=== PATIENT | female | born 1935 | race Caucasian/White ===

== ENCOUNTER 2018-05-20 05:59 | Inpatient (IN) | payer OTHER ==
[~2018-05-20] VITALS: Ht 165.1 cm; Wt 62.9 kg
[~2018-05-20 05:59] MED LIST: FLUT15.88 NAS; HYDR12.53 PO; LOVA10TA PO
[2018-05-20] MEDS ORDERED: SODIUM CHLORIDE 0.9% 1,000 ML IV ONE (06:06)
[2018-05-20 06:24] VITALS: BP 152/75
[2018-05-20] MEDS ORDERED: ONDANSETRON 2MG/ML, 2ML IVPush PRN (06:30)
[2018-05-20] MEDS ORDERED: CHLORHEXIDINE 15 ML BOTTLE MM PRN (06:30)
[2018-05-20] MEDS ORDERED: CHLORHEXIDINE 15 ML UDC MM PRN (06:30)
[2018-05-20 06:38] LABS: BASOPHILS # (AUTO) 0.02 x10^3/uL (0-0.1); BASOPHILS % (AUTO) 1 % (0-1); EOSINOPHILS # (AUTO) 0.13 x10^3/uL (0-0.4); EOSINOPHILS % (AUTO) 3 % (1-7); LYMPHOCYTES % (AUTO) 27 % (22-44); MD NO; MEAN CORPUSCULAR VOLUME 91.3 fL (80-100); MEAN PLATELET VOLUME 8.8 fL (7.4-10.4); MONOCYTES # (AUTO) 0.42 x10^3/uL (0.2-0.8); MONOCYTES % (AUTO) 8 % (2-9); NEUTROPHILS % (AUTO) 62 % (42-75); PLATELET COUNT 211 x10^3/uL (130-400); RED BLOOD COUNT 4.52 x10^6/uL (3.82-5.3); RED CELL DISTRIBUTION WIDTH 13.9 % (9.6-15.2)
[2018-05-20 06:44] LABS: INTERNATIONAL NORMALIZED RATIO 1.04 (0.93-1.1); PROTHROMBIN TIME 10.7 Seconds (9.6-11.5)
[2018-05-20 06:45] LABS: ALANINE AMINOTRANSFERASE 40 U/L (12-78); ALBUMIN 4.2 g/dL (3.4-5.0); ANION GAP 6 mmol/L (5-15); CALCIUM 9.2 mg/dL (8.5-10.1); CHLORIDE 106 mmol/L (98-107); CREATININE 0.79 mg/dL (0.55-1.02)
[2018-05-20 06:49] LABS: ALKALINE PHOSPHATASE 56 U/L (45-117); BILIRUBIN,TOTAL 0.8 mg/dL (0.2-1.0); TOTAL PROTEIN 7.4 g/dL (6.4-8.2)
[2018-05-20] MEDS ORDERED: FENTANYL PF 250 MCG/5ML ONE (07:00)
[2018-05-20] MEDS ORDERED: LIDOCAINE 2%, 50ML ONE (07:09)
[2018-05-20] MEDS ORDERED: PROTAMINE SULFATE 10 MG/ML, 5ML ONE (07:09)
[2018-05-20] MEDS ORDERED: CEFAZOLIN 1,000 MG ONE (07:09)
[2018-05-20] MEDS ORDERED: HEPARIN 1,000 UNITS/ML, 10ML ONE ×2 (07:09→08:27)
[2018-05-20] MEDS ORDERED: ROCURONIUM 10 MG/ML,10ML ONE (07:44)
[2018-05-20] MEDS ORDERED: PROPOFOL 10 MG/ML, 20ML ONE (09:14)
[2018-05-20] MEDS ORDERED: SUCCINYLCHOLINE 20 MG/ML, 10ML ONE (09:14)
[2018-05-20] MEDS ORDERED: ONDANSETRON 2MG/ML, 2ML ONE (09:15)
[2018-05-20] MEDS: hydrALAzine 20 MG/ML, 1ML IVPush PRN ×2 (09:36→11:27)
[2018-05-20] MEDS: LABETALOL 20 MG/4 ML IVPush PRN ×2 (10:08→12:30)
[2018-05-20] MEDS: SODIUM CHLORIDE 0.9% 1,000 ML IV SCH ×2 (11:32→15:35)
[2018-05-20] MEDS: HYDROCHLOROTHIAZIDE 12.5 MG CAPSULE PO SCH (11:32)
[2018-05-20] MEDS ORDERED: LOVASTATIN 10 MG TABLET PO SCH (21:00)
[2018-05-20] MEDS ORDERED: CLOPIDOGREL 300 MG TABLET PO ONE (21:00)
[2018-05-20] MEDS ORDERED: FLUTICASONE NASAL SPRAY 16GM NAS SCH (21:00)
[2018-05-20 22:07] VITALS: BP 107/56
[2018-05-21 02:26] VITALS: BP 107/53
[2018-05-21 06:37] LABS: BASOPHILS # (AUTO) 0.02 x10^3/uL (0-0.1); BASOPHILS % (AUTO) 0 % (0-1); EOSINOPHILS # (AUTO) 0.08 x10^3/uL (0-0.4); EOSINOPHILS % (AUTO) 1 % (1-7); LYMPHOCYTES # (AUTO) 1.26 x10^3/uL (1-3.4); LYMPHOCYTES % (AUTO) 20 % (22-44); MD NO; MEAN CORPUSCULAR HEMOGLOBIN 30.9 pg (27.0-34.8); MEAN CORPUSCULAR HGB CONC 34.2 g/dL (32.4-35.8); MEAN CORPUSCULAR VOLUME 90.3 fL (80-100); MONOCYTES % (AUTO) 11 % (2-9); NEUTROPHILS # (AUTO) 4.35 x10^3/uL (1.8-6.8); NEUTROPHILS % (AUTO) 68 % (42-75); PLATELET COUNT 119 x10^3/uL (130-400); RED BLOOD COUNT 3.49 x10^6/uL (3.82-5.3); RED CELL DISTRIBUTION WIDTH 13.6 % (9.6-15.2)
[2018-05-21 06:40] LABS: CHLORIDE 105 mmol/L (98-107)
[2018-05-21 06:44] LABS: ANION GAP 8 mmol/L (5-15); CREATININE 0.63 mg/dL (0.55-1.02)
[2018-05-21 06:51] VITALS: BP 111/61
[2018-05-21] MEDS: HYDROCHLOROTHIAZIDE 12.5 MG CAPSULE PO SCH (08:43)
[2018-05-21] MEDS ORDERED: ASPIRIN 81 MG TABLET EC PO SCH (09:00)
[2018-05-21] MEDS ORDERED: CLOPIDOGREL 75 MG TABLET PO SCH (09:00)
[2018-05-21] MEDS ORDERED: CLOP75TA PO (09:21)
[2018-05-21] MEDS ORDERED: ASPI-621 PO (09:21)
[2018-05-21] MEDS ORDERED: POTASSIUM CHLORIDE 20 MEQ TAB.ER.PRT PO ONE (09:30)
[2018-05-21 14:12] VITALS: BP 128/53
== END 2018-05-21 16:57 | disposition home or self-care (01) | DRG 266 ==
LOC: ORIP 05:59 → CCU 09:13 → 5SO 21:57
PROVIDERS: ADMIT Internal Medicine Cardiovascular Disease; ATTEND Internal Medicine Cardiovascular Disease
PROC: 5A1223Z Performance of Cardiac Pacing, Continuous (ICD-10-PCS; 2018-05-20)
PROC: 02RF38Z Replacement of Aortic Valve with Zooplastic Tissue, Percutaneous Approach (ICD-10-PCS; principal; 2018-05-20 08:00)
DX: I35.0 Nonrheumatic aortic (valve) stenosis (principal); Z00.6 Encounter for examination for normal comparison and control in clinical research program; I50.33 Acute on chronic diastolic (congestive) heart failure; E78.5 Hyperlipidemia, unspecified; G89.29 Other chronic pain; M19.90 Unspecified osteoarthritis, unspecified site; G60.9 Hereditary and idiopathic neuropathy, unspecified; M54.5 Low back pain; I11.0 Hypertensive heart disease with heart failure; Z87.891 Personal history of nicotine dependence
CPT/HCPCS: 33361; 36415; 80048; 80053; 82040; 83880; 85025; 85347; 85610; 85730; 86850; 86900; 86923; 87081; 93005; 93306; 94060; 94726; 94729; C1760; C1769; C1894; J0690; J1644; J2405; J2704; J2720; J3010; J0330; J0360; J3490; J7030; Q9967

== ENCOUNTER 2019-05-21 10:11 | Outpatient (CLI) | payer MEDICARE | END 2019-05-21 23:59 | disposition home or self-care (01) | LOC: CVU 10:11 | PROVIDERS: ATTEND Internal Medicine Cardiovascular Disease | DX: I05.9 Rheumatic mitral valve disease, unspecified (principal); I10 Essential (primary) hypertension; Z95.0 Presence of cardiac pacemaker | CPT/HCPCS: 93306 ==

== ENCOUNTER 2020-02-03 14:14 | Emergency (ER) | payer MEDICARE ==
[~2020-02-03] VITALS: Ht 160 cm; Wt 65.0 kg
[~2020-02-03 14:14] MED LIST changes: +ASPI81TA45 PO; +CLOP75TA PO; +FLUT15.845 NAS; -FLUT15.88 NAS; +HYDR12.517 PO; -HYDR12.53 PO
--- NOTE | 2020-02-03 15:40 | NUR ---
HEALTHCARE TRANSLATOR: PT TO ROOM FROM [facility] MYERS.
[2020-02-03] MEDS ORDERED: LIDOCAINE-MPF 1%, 5ML ONE (15:50)
[2020-02-03] MEDS ORDERED: LIDOCAINE-MPF 1%, 5ML INFIL ONE (16:00)
[2020-02-03] MEDS ORDERED: SULFAMETH./TRIMETHOPRIM DS 800MG/160MG TABLET ONE (16:29)
[2020-02-03] MEDS ORDERED: CEPHALEXIN 500 MG CAPSULE ONE (16:29)
[2020-02-03] MEDS ORDERED: SULFAMETH./TRIMETHOPRIM DS 800MG/160MG TABLET PO ONE (16:30)
[2020-02-03] MEDS ORDERED: CEPHALEXIN 500 MG CAPSULE PO ONE (16:30)
[2020-02-03 16:35] VITALS: BP 121/61
--- NOTE | 2020-02-03 16:50 | NUR ---
Patient given discharge instructions and they have confirmed that they understand the instructions. Patient ambulatory with steady gait.
== END 2020-02-03 16:51 | disposition home or self-care (01) ==
LOC: ED 16:33
DX: L02.212 Cutaneous abscess of back [any part, except buttock and flank] (principal); B02.33 Zoster keratitis; I10 Essential (primary) hypertension
CPT/HCPCS: 10060; 99283

== ENCOUNTER 2020-02-05 13:15 | Emergency (ER) | payer MEDICARE ==
[~2020-02-05] VITALS: Ht 160 cm; Wt 62.5 kg
[2020-02-05 13:35] VITALS: BP 121/60
--- NOTE | 2020-02-05 16:10 | NUR ---
Wound dressing removed, wound bed cleansed with sterile saline
== END 2020-02-05 16:59 | disposition home or self-care (01) ==
LOC: ED 16:26
DX: Z48.01 Encounter for change or removal of surgical wound dressing (principal); I10 Essential (primary) hypertension
CPT/HCPCS: 99282

== ENCOUNTER 2020-02-09 09:34 | Emergency (ER) | payer MEDICARE ==
[~2020-02-09] VITALS: Ht 160 cm; Wt 62.8 kg
[2020-02-09 09:42] VITALS: BP 108/58
[2020-02-09] MEDS ORDERED: NEOSPORIN OINT. PKT 1 PACKET ONE (10:06)
== END 2020-02-09 11:17 | disposition home or self-care (01) ==
LOC: ED 09:54
DX: L02.212 Cutaneous abscess of back [any part, except buttock and flank] (principal); I10 Essential (primary) hypertension
CPT/HCPCS: 99282

== ENCOUNTER → 2020-02-17 | Outpatient (CLI) | payer MEDICARE | END | disposition home or self-care (01) | LOC: WOUND 14:22 | PROVIDERS: ATTEND Internal Medicine | DX: L02.212 Cutaneous abscess of back [any part, except buttock and flank] (principal); E78.5 Hyperlipidemia, unspecified; I10 Essential (primary) hypertension; G62.9 Polyneuropathy, unspecified; Z88.0 Allergy status to penicillin | CPT/HCPCS: 11042 ==

== ENCOUNTER → 2020-02-24 | Outpatient (CLI) | payer MEDICARE | END | disposition home or self-care (01) | LOC: WOUND 10:32 | PROVIDERS: ATTEND Internal Medicine | DX: L02.212 Cutaneous abscess of back [any part, except buttock and flank] (principal); E78.5 Hyperlipidemia, unspecified; I10 Essential (primary) hypertension; G62.9 Polyneuropathy, unspecified; Z88.0 Allergy status to penicillin | CPT/HCPCS: 11042 ==

== ENCOUNTER 2020-03-02 10:29 | Outpatient (CLI) | payer MEDICARE | END 2020-03-02 23:59 | disposition home or self-care (01) | LOC: WOUND 10:29 | PROVIDERS: ATTEND Internal Medicine | DX: L02.212 Cutaneous abscess of back [any part, except buttock and flank] (principal); E78.5 Hyperlipidemia, unspecified; I10 Essential (primary) hypertension; G62.9 Polyneuropathy, unspecified; Z88.0 Allergy status to penicillin | CPT/HCPCS: 97597 ==

== ENCOUNTER → 2020-03-09 | Outpatient (CLI) | payer MEDICARE | END | disposition home or self-care (01) | LOC: WOUND 09:59 | PROVIDERS: ATTEND Internal Medicine | DX: L02.212 Cutaneous abscess of back [any part, except buttock and flank] (principal); E78.5 Hyperlipidemia, unspecified; I10 Essential (primary) hypertension; G62.9 Polyneuropathy, unspecified; Z88.0 Allergy status to penicillin | CPT/HCPCS: 17250 ==

== ENCOUNTER 2020-03-16 09:02 | Outpatient (CLI) | payer MEDICARE | END 2020-03-16 23:59 | disposition home or self-care (01) | LOC: WOUND 09:02 | PROVIDERS: ATTEND Internal Medicine | DX: L02.212 Cutaneous abscess of back [any part, except buttock and flank] (principal); E78.5 Hyperlipidemia, unspecified; I10 Essential (primary) hypertension; G62.9 Polyneuropathy, unspecified; Z88.0 Allergy status to penicillin | CPT/HCPCS: 97597 ==

== ENCOUNTER 2020-03-30 09:43 | Outpatient (CLI) | payer MEDICARE | END 2020-03-30 23:59 | disposition home or self-care (01) | LOC: WOUND 09:43 | PROVIDERS: ATTEND Internal Medicine | DX: L02.212 Cutaneous abscess of back [any part, except buttock and flank] (principal); E78.5 Hyperlipidemia, unspecified; I10 Essential (primary) hypertension; G62.9 Polyneuropathy, unspecified; Z88.0 Allergy status to penicillin | CPT/HCPCS: 99213; G0463 ==

== ENCOUNTER → 2020-05-31 | Outpatient (CLI) | payer MEDICARE | END | disposition home or self-care (01) | LOC: CVU 08:43 | PROVIDERS: ATTEND Internal Medicine Cardiovascular Disease | DX: I86.8 Varicose veins of other specified sites (principal); R60.0 Localized edema | CPT/HCPCS: 93970 ==

== ENCOUNTER → 2020-06-08 | Outpatient (CLI) | payer MEDICARE | END | disposition home or self-care (01) | LOC: CFH 09:48 | PROVIDERS: ATTEND Nurse Practitioner Family | DX: I08.8 Other rheumatic multiple valve diseases (principal); I10 Essential (primary) hypertension; R00.2 Palpitations | CPT/HCPCS: 93306 ==